=== PATIENT | female | born 1945 ===

== ENCOUNTER 2023-08-25 14:59 | Inpatient (IN) | payer MEDICARE, OTHER ==
[~2023-08-25] VITALS: Ht 165.1 cm; Wt 86.2 kg
[2023-08-25 15:35] LABS: BASOPHILS # (AUTO) 0.1 K/UL (0.0-0.2); BASOPHILS % (AUTO) 0.8 % (0.0-2.0); EOSINOPHILS # (AUTO) 0.1 K/uL (0.0-0.7); EOSINOPHILS % (AUTO) 1.4 % (0.0-7.0); HEMATOCRIT 49.5 % (31.2-41.9); HEMOGLOBIN 16.6 g/dL (10.9-14.3); LYMPHOCYTES % (AUTO) 15.9 % (20.5-51.5); MEAN CORPUSCULAR HEMOGLOBIN 33.6 uug (24.7-32.8); MEAN CORPUSCULAR HGB CONC 34 g/dL (32.3-35.6); MEAN CORPUSCULAR VOLUME 100.3 fL (75.5-95.3); MONOCYTES # (AUTO) 0.5 K/uL (0.1-1.30); MONOCYTES % (AUTO) 7.4 % (0.0-11.0); NEUTROPHILS # (AUTO) 4.7 K/uL (1.8-8.9); NEUTROPHILS % (AUTO) 74.5 % (38.5-71.5); PLATELET COUNT (AUTO) 122 K/uL (179-408); RED BLOOD CELL COUNT(AUTO) 4.94 MIL/uL (3.63-4.92); RED CELL DISTRIBUTION WIDTH 14.6 % (12.3-17.7); WHITE BLOOD COUNT (AUTO) 6.4 K/uL (3.8-11.8)
[2023-08-25 15:57] LABS: CALCIUM 8.9 mg/dL (8.5-10.1); CARBON DIOXIDE 25 mmol/L (21-32); CHLORIDE 109 mmol/L (98-107); CREATININE 1.2 mg/dL (0.6-1.3); GLUCOSE 68 mg/dL (74-106); POTASSIUM 3.7 mmol/L (3.5-5.1); SODIUM SERUM 145 mmol/L (136-145); UREA NITROGEN, BLOOD 16 mg/dL (7-18)
[2023-08-25 16:02] LABS: DIFFERENTIAL COMMENT 1
[2023-08-25 16:06] LABS: LACTIC ACID 2.9 mmol/L (0.4-2.0)
[2023-08-25 16:08] LABS: ALANINE AMINOTRANSFERASE 29 U/L (14-59); ALBUMIN 3.7 g/dL (3.4-5.0); ALKALINE PHOSPHATASE 130 U/L (50-136); ASPARTATE AMINOTRANSFERASE 21 U/L (15-37); BILIRUBIN,DIRECT 0.1 mg/dL (0.0-0.2); BILIRUBIN,TOTAL 0.7 mg/dL (0.2-1.0); NT-PRO BNP 210 pg/mL (0-125); TOTAL PROTEIN, SERUM 6.9 g/dL (6.4-8.2)
[2023-08-25] MEDS ORDERED: levoFLOXacin 500 MG/D5W 100 ML ONE (16:36)
[2023-08-25] MEDS: IV NORMAL SALINE 1000 ML BAG IV ONE (16:44)
[2023-08-25] MEDS: levoFLOXacin 500 MG/D5W 100ML PIGGYBACK IV ONE (16:45)
[2023-08-25 16:53] LABS: *BILIRUBIN,URIN NEGATIVE (NEGATIVE); *CLARITY,URINE CLEAR (CLEAR); *COLOR,URINE YELLOW (YELLOW); *KETONES,URINE NEGATIVE (NEGATIVE); *PROTEIN,URINE NEGATIVE (NEGATIVE); *UROBILINOGEN,URINE 0.2 E.U./dl (NORMAL); LEUKOCYTE ESTERASE ,URINE NEGATIVE (NEGATIVE); NITRITE, URINE NEGATIVE (NEGATIVE); PH,URINE 5.5 (5.0-8.0); UGLUCOSE NEGATIVE (NEGATIVE)
[2023-08-25 16:59] LABS: *BLOOD, URINE TRACE (NEGATIVE)
[2023-08-25 17:09] LABS: RBC,URINE 0-3 /HPF (0-3)
[2023-08-25 17:10] LABS: BACTERIA,URINE FEW /HPF (NONE SEEN); SQUAMOUS EPITHELIAL CELL,UR MODERATE /HPF (NONE SEEN); WBC,URINE NONE SEEN /HPF (0-3)
[2023-08-25] MEDS ORDERED: BENA20TA9 PO (18:31)
[2023-08-25] MEDS ORDERED: FESO4TAB (18:31)
[2023-08-25] MEDS ORDERED: ATOR40TA (18:31)
[2023-08-25] MEDS ORDERED: CLOP75TA33 PO (18:31)
[2023-08-25] MEDS ORDERED: ESTR42.511 VG (18:31)
[2023-08-25] MEDS ORDERED: MAGN400T26 PO (18:31)
[2023-08-25 22:00] VITALS: BP 148/71; TEMP 97.9; O2SAT 98
[2023-08-25] MEDS ORDERED: ONDANSETRON 4 MG/2 ML VIAL IV PRN (22:15)
[2023-08-25] MEDS ORDERED: MAGNESIUM HYDROXIDE 30 ML LIQUID UDC PO PRN (22:15)
[2023-08-25] MEDS: ATORVASTATIN 40 MG TABLET PO SCH (22:15)
[2023-08-25] MEDS: ACETAMINOPHEN 325 MG TABLET PO PRN (22:32)
[2023-08-25] MEDS: IV NS 1000 ML 1,000 ML IV PRN (22:32)
[2023-08-25] MEDS ORDERED: DEXTROSE 50% 50 ML DISP.SYRIN IV PRN (23:15)
[2023-08-26] VITALS (12 sets, daily range): BP systolic 123–184; BP diastolic 59–76; TEMP 97.6–98.2; O2SAT 97–100
[2023-08-26] MEDS: BLOOD SUGAR DIAGNOSTIC 1 EACH STRIP VI SCH ×2 (00:30→17:35)
[2023-08-26 06:42] LABS: BASOPHILS % (AUTO) 0.5 % (0.0-2.0); EOSINOPHILS # (AUTO) 0.1 K/uL (0.0-0.7); EOSINOPHILS % (AUTO) 2.9 % (0.0-7.0); HEMATOCRIT 43.5 % (31.2-41.9); HEMOGLOBIN 14.5 g/dL (10.9-14.3); LYMPHOCYTES # (AUTO) 1.5 K/uL (0.8-4.8); MEAN CORPUSCULAR HEMOGLOBIN 33.1 uug (24.7-32.8); MEAN CORPUSCULAR HGB CONC 33 g/dL (32.3-35.6); MEAN CORPUSCULAR VOLUME 99.1 fL (75.5-95.3); MONOCYTES # (AUTO) 0.5 K/uL (0.1-1.30); MONOCYTES % (AUTO) 12.8 % (0.0-11.0); NEUTROPHILS # (AUTO) 1.8 K/uL (1.8-8.9); NEUTROPHILS % (AUTO) 45.8 % (38.5-71.5); PLATELET COUNT (AUTO) 118 K/uL (179-408); RED BLOOD CELL COUNT(AUTO) 4.39 MIL/uL (3.63-4.92); RED CELL DISTRIBUTION WIDTH 14.4 % (12.3-17.7); WHITE BLOOD COUNT (AUTO) 3.9 K/uL (3.8-11.8)
[2023-08-26 06:45] LABS: DIFFERENTIAL COMMENT 1
[2023-08-26 06:51] LABS: CALCIUM 8.5 mg/dL (8.5-10.1); MAGNESIUM 2.1 mg/dL (1.8-2.4); PHOSPHOROUS 2.8 mg/dL (2.5-4.9); POTASSIUM 4.2 mmol/L (3.5-5.1)
[2023-08-26] MEDS: MAGNESIUM OXIDE 400 MG TABLET PO SCH (08:56)
[2023-08-26] MEDS: CLOPIDOGREL 75 MG TABLET PO SCH (08:56)
[2023-08-26] MEDS: BENAZEPRIL HCL 20 MG TABLET PO SCH (08:57)
[2023-08-26] MEDS: ENOXAPARIN SODIUM 30 MG/0.3 ML DISP.SYRIN SQ SCH (09:00)
[2023-08-26] MEDS ORDERED: ISOS60TA72 PO (12:26)
[2023-08-26] MEDS: MECLIZINE HCL 25 MG TABLET PO PRN (12:27)
[2023-08-26] MEDS: ISOSORBIDE MONONITRATE 60 MG TAB.SR.24H PO SCH (13:46)
[2023-08-27] VITALS: BP 144/71; TEMP 97.9; O2SAT 96
[2023-08-27 05:00] VITALS: BP 131/60; TEMP 97.9; O2SAT 97
[2023-08-27 08:00] VITALS: BP 145/70; TEMP 98.6; O2SAT 95
[2023-08-27] MEDS ORDERED: MECL-159 PO (08:16)
[2023-08-27] MEDS ORDERED: CEPH250C PO (08:16)
[2023-08-27 12:00] VITALS: BP 140/57; TEMP 98.4; O2SAT 95
== END 2023-08-27 14:45 | disposition home or self-care (01) | DRG 641 ==
LOC: ER 15:03 → TELE3 21:25 → MEDSURG3 08-27 09:05
PROVIDERS: ADMIT Nurse Practitioner Acute Care; ATTEND Nurse Practitioner Acute Care
DX: E86.0 Dehydration (principal); E11.649 Type 2 diabetes mellitus with hypoglycemia without coma; H81.10 Benign paroxysmal vertigo, unspecified ear; E87.21 Acute metabolic acidosis; I69.320 Aphasia following cerebral infarction; Z95.0 Presence of cardiac pacemaker; Z79.899 Other long term (current) drug therapy; Z79.02 Long term (current) use of antithrombotics/antiplatelets
CPT/HCPCS: 36415; 70450; 71045; 83605; 83735; 84100; 84484; 85025; 85730; 87040; 93005; 93307; A4606; A4663; G0378; J1650; J1956; J7040; J8597